=== PATIENT | male | born 1940 | race Caucasian/White ===

== ENCOUNTER 2021-05-05 23:34 | Emergency (ER) | payer MEDICARE ==
[~2021-05-05] VITALS: Ht 182.9 cm; Wt 90.0 kg
--- NOTE | 2021-05-06 00:27 | NUR ---
PT HAS NOT BEEN ABLE TO VOID IN THE LAST COUPLE HRS AFTER HAVING A FEW BEERS PER PT. PT IN ROOM WITH FAMILY AT PT SIDE, PT ON MONITOR WITH VSS. PT BLADDER SCAN READ 843 ML. PT PROVIDED A BLANKET. LOONEY PLACED WITHOUT ISSUE 880ML DRAIN.
[2021-05-06 01:20] VITALS: BP 133/67
== END 2021-05-06 01:22 | disposition home or self-care (01) ==
LOC: ED 05-06 00:49
DX: N40.1 Benign prostatic hyperplasia with lower urinary tract symptoms (principal); R33.8 Other retention of urine
CPT/HCPCS: 51702; 99284